=== PATIENT | female | born 1985 | race Caucasian/White ===

== ENCOUNTER 2016-12-09 14:03 | Observation (INO) | payer OTHER ==
[~2016-12-09] VITALS: Ht 165.1 cm; Wt 63.6 kg
[2016-12-09] VITALS (9 sets, daily range): BP systolic 96–120; BP diastolic 58–78; PULSE 57–74; RESP 10–20; O2SAT 98–100
[~2016-12-09 14:03] MED LIST: IBUPROFEN PO; ONDA4TAB6 PO; PREN-121 PO; [UNRECOGNIZED DRUG - CODE] PO
--- NOTE | 2016-12-09 15:53 | ED.REPORT ---
HPI- Female Date of Service Dec 09, 2016 ED Provider: Fabiola Garcia History of Present Illness: bartholins cyst, no bobbin washer. primary care is ketan fuller. normally healthy. present since last Friday. no hx of prior. Seen on and opened it. getting worse. No discharge out. Nursing Notes Stated Complaint: BARTHOLIN GLAND CYST/REFERRED BY JOSEFINA CASE Chief Complaint: General Complaint Nursing Notes Reviewed: Yes Allergies: Coded Allergies: No Known Allergies (Verified Allergy, Unknown, 08/17/15) No Active Prescriptions or Reported Meds General Time Seen by MD: 15:52 Chief Complaint Other (bartholins cyst) Hx Obtained From: Patient Sudden in Onset?: No Past Medical History Past Medical History Fibrocystic breasts diagnosed at age 20, per mammogram. History of HPV in 2005. Past Surgical History D&C Family History noncontributory Smoking History Never Smoker Social History Drug Use: Denies drug use Other Social History: Good social support, , Local resident Ambulatory Status Independent Review of Systems Basic Review of Systems Eyes: Vision NL, No discharge Hematologic: No bleeding, No bruising Psychiatric: Normal thought content Physical Exam Initial Vital Signs Vital Signs (First) Date Time Temp Pulse Resp B/P Pulse Ox O2 Delivery O2 Flow Rate FiO2 12/09/16 14:07 37.0 74 20 120/77 99 Room Air Initial VS: Reviewed, Vital signs normal General/Constitutional: Well-developed, Well-nourished Head / Eyes: Atraumatic, Normocephalic, PERRL ENT: Mucous membranes moist, Conjunctiva normal, No scleral icterus Neck: Supple, Non-tender, Full range of motion Respiratory: Breath sounds normal, Clear to auscultation, No respiratory distress Cardiovascular: Regular rate & rhythm, Heart sounds normal, Intact distal pulses Abdomen / GI: Soft, Non-tender, No guarding, No rebound, No distention Back: No CVA tenderness Lymphatic: No lymphadenopathy Extremities: Vascular intact, Neuro intact, No swelling, No tenderness Skin: Warm, Dry, No cyanosis Neurologic: Alert, Oriented, Nonfocal Psychiatric: Mood/affect normal, Behavior normal, Normal thought content suture with packing on the left labia. Protruding abscess site on left rectal area with swelling extending into labia General/Constitutional: Awake, Alert Distress / Hydration: Positive: Distress mild Respiratory / Chest: Atraumatic, Breath sounds NL, Breath sounds = bilat, No respiratory distress Cardiovascular: Heart rate NL, Regular rhythm, Heart sounds NL Abdomen: Atraumatic, Soft, Non-tender Interpretation & Diagnostics Lab Results Interpretation Result Diagram: 12/09/16 1627 12/09/16 1627 Test 12/09/16 16:27 12/09/16 16:55 12/09/16 17:01 White Blood Count 12.6th/mm3 (3.8-10.1) Red Blood Count 4.24mil/mm3 (3.90-5.20) Hemoglobin 12.7g/dL (12.0-15.6) Hematocrit 38.7% (35.0-46.0) Mean Corpuscular Volume 91.3fL (81-100) Mean Corpuscular Hemoglobin 30.0pg (27.0-35.0) Mean Corpuscular Hemoglobin Concent 32.8% (32.0-37.0) Red Cell Distribution Width 12.3% (12.3-15.4) Platelet Count 182bil/L (150-400) Neutrophils (%) (Auto) 78.0% (40-74) Lymphocytes (%) (Auto) 12.5% (14-46) Monocytes (%) (Auto) 7.2% (4-12) Eosinophils (%) (Auto) 1.9% (0-5) Basophils (%) (Auto) 0.2% (0-3) Sodium Level 138mEq/L (134-144) Potassium Level 3.9mEq/L (3.5-5.2) Chloride Level 101mEq/L (97-108) Carbon Dioxide Level 24mmol/L (18-29) Blood Urea Nitrogen 10mg/dL (6-20) Creatinine 0.75mg/dL (0.57-1.00) Estimat Glomerular Filtration Rate 130mL/min (>59) Glucose Level 98mg/dL (60-99) Lactic Acid Level 0.7mmol/L (0.4-2.0) Calcium Level 9.0mg/dL (8.5-10.1) Total Bilirubin 0.3mg/dL (0.0-1.2) Aspartate Amino Transf (AST/SGOT) 13U/L (0-50) Alanine Aminotransferase (ALT/SGPT) 11U/L (0-32) Alkaline Phosphatase 51U/L (25-150) Total Protein 6.9g/dL (6.4-8.4) Albumin 3.8g/dL (3.4-5.0) Hold Urine Received (Received) Urine Color Yellow (YELLOW) Urine Appearance Clear (CLEAR,HAZY) Urine pH 5.5 (5.0-8.0) Urine Specific [place] 1.010 (1.003-1.035) Urine Protein Negativemg/dL (NEG,TRACE) Urine Glucose (UA) Negativemg/dL (NEGATIVE) Urine Ketones 15mg/dL (NEGATIVE) Urine Occult Blood Negative (NEGATIVE) Urine Nitrite Negative (NEGATIVE) Urine Bilirubin Negative (NEGATIVE) Urine Urobilinogen Normalmg/dL (NORMAL) Urine Leukocyte Esterase Negative (NEGATIVE) Urine RBC 0-2/hpf (0-2) Urine WBC 0-5/hpf (0-5) Urine Epithelial Cells Few/hpf (NONE-MOD) Urine Crystals None seen (NONE SEEN) Urine Bacteria Few/hpf (NONE-FEW) Urine Hyaline Casts None/lpf (NONE) Urine Granular Casts None seen (NONE SEEN) Urine Waxy Casts None seen (NONE SEEN) Urine Red Blood Cell Casts None seen (NONE SEEN) Urine White Blood Cell Casts None seen (NONE SEEN) Urine Mucus None seen (None Seen) Urine Trichomonas None seen (NONE SEEN) Urine Yeast None (NONE SEEN) Urinalysis Comment None Urine Culture Reflexed Not indicated CT Abd / Pelvis Interpretation PROCEDURE: CT ABDOMEN AND PELVIS WITH CONTRAST ([id number]) INDICATIONS: ? rectal vs perirectal abscess with extension into TECHNIQUE: After the administration of intravenous contrast, 5 mm thick sections acquired from the diaphragm to the symphysis. 5 mm coronal and sagittal reformats were acquired. For radiation dose reduction, the following was used: automated exposure control, adjustment of mA and/or kV according to patient size. COMPARISON: None. FINDINGS: Image quality: Excellent. ABDOMEN: Lung bases: Lung bases are clear. Heart size is normal. Solid organs: Liver is enlarged with steatosis. The spleen is normal in size and enhancement. Gallbladder is unremarkable. Biliary system is non dilated. Pancreas enhances normally. No adrenal nodules. Kidneys demonstrate normal size and enhancement, without hydronephrosis. Peritoneum and bowel: Bowel loops demonstrate normal wall thickness and caliber. No free fluid or air. Nodes and vessels: No retroperitoneal or mesenteric adenopathy by size criteria. Aorta and inferior vena cava are normal in size. Miscellaneous: No ventral hernias. PELVIS: Genitourinary: Bladder wall thickness is normal. Intrauterine device is present. Right adnexal cyst is present measuring 25 mm. Miscellaneous: No inguinal hernias or adenopathy. Left perirectal enhancing fluid collection in the para midline position measuring 34 mm AP by 29 mm transverse. There is mild surrounding subcutaneous fat stranding. Bones: No suspicious bony lesions. No vertebral body compression fractures. IMPRESSION: 1. Left perirectal enhancing fluid collection described above measuring 34 mm AP by 29 mm transverse most consistent with abscess. 2. Right adnexal cyst. Dictated by: Irlanda Mazariegos M.D. on 12/09/2016 at 17:17 Approved by: Irlanda Mazariegos M.D. on 12/09/2016 at 17:54 Re-Eval/Medical Decision Med Decision/Clinical Course 31 year old presents for evualation of perianal pain of 5 days duration. Exam indicates left sided swellinginto the labia with suture and packing. Protruding abscess on rectal area. Patient with exquiste tenderness in rectal area Discharge & Departure Impression: Primary Impression: Perirectal abscess Disposition: ADMITTED TO HOSPITAL Referrals: Josefina uFller (PCP) EDSupervising Provider for APC: Myke Peng DO copies to: Josefnia Fuller Sue ARNP Dec 09, 2016 15:53
[2016-12-09] MEDS ORDERED: HYDROmorphone 0.5 mg/0.5 mL iSecure Syringe IVPUSH ONE (16:00)
[2016-12-09] MEDS ORDERED: Ondansetron 2 mg/mL 2 mL Inj IVPUSH ONE (16:00)
[2016-12-09] MEDS ORDERED: Vancomycin Inj 1,000 MG in IV Premix 1 EACH IV ONE (16:00)
[2016-12-09] MEDS ORDERED: 0.9% Sodium Chloride 1,000 ML IV ONE (16:00)
[2016-12-09 16:33] LABS: BASOPHILS % (AUTO) 0.2 % (0-3); EOSINOPHILS % (AUTO) 1.9 % (0-5); MONOCYTES % (AUTO) 7.2 % (4-12); Mean Corpuscular Volume 91.3 fL (81-100); Platelet Count 182 bil/L (150-400)
[2016-12-09 17:33] LABS: APPEARANCE,URINE CLEAR (CLEAR,HAZY); COLOR,URINE YELLOW (YELLOW); OCCULT BLOOD,URINE NEGATIVE (NEGATIVE); PH,URINE 5.5 (5.0-8.0); UROBILINOGEN,URINE NORMAL (NORMAL)
--- NOTE | 2016-12-09 17:56 | DRSVH ---
PROCEDURE: CT ABDOMEN AND PELVIS WITH CONTRAST ([id number]) INDICATIONS: ? rectal vs perirectal abscess with extension into TECHNIQUE: After the administration of intravenous contrast, 5 mm thick sections acquired from the diaphragm to the symphysis. 5 mm coronal and sagittal reformats were acquired. For radiation dose reduction, the following was used: automated exposure control, adjustment of mA and/or kV according to patient siz e. COMPARISON: None. FINDINGS: Image quality: Excellent. ABDOMEN: Lung bases: Lung bases are clear. Heart size is normal. Solid organs: Liver is enlarged with steatosis. The spleen is normal in size and enhancement. Gallb ladder is unremarkable. Biliary system is non dilated. Pancreas enhances normally. No adrenal nodu les. Kidneys demonstrate normal size and enhancement, without hydronephrosis. Peritoneum and bowel: Bowel loops demonstrate normal wall thickness and caliber. No free fluid or a ir. Nodes and vessels: No retroperitoneal or mesenteric adenopathy by size criteria. Aorta and inferior vena cava are normal in size. Miscellaneous: No ventral hernias. PELVIS: Genitourinary: Bladder wall thickness is normal. Intrauterine device is present. Right adnexal cyst is present measuring 25 mm. Miscellaneous: No inguinal hernias or adenopathy. Left perirectal enhancing fluid collection in the para midline position measuring 34 mm AP by 29 mm transverse. There is mild surrounding subcutaneous fat stranding. Bones: No suspicious bony lesions. No vertebral body compression fractures. IMPRESSION: 1. Left perirectal enhancing fluid collection described above measuring 34 mm AP by 29 mm transverse most consistent with abscess. 2. Right adnexal cyst. Dictated by: Irlanda Mazariegos M.D. on 12/09/2016 at 17:17 Approved by: Irlanda Mazariegos M.D. on 12/09/2016 at 17:54
[2016-12-09] MEDS ORDERED: Lactated Ringer's 500 ML IV PRN (19:52)
[2016-12-09] MEDS ORDERED: Lactated Ringer's 1,000 ML IV SCH (19:52)
[2016-12-09] MEDS ORDERED: Lactated Ringer's 1,000 ML IV ONE ×3 (19:52)
--- NOTE | 2016-12-09 19:52 | PCM.HPANE ---
Patient Data Date of Service: Dec 09, 2016 Surgeon Admitting Provider: Attending Provider:Rosendo Jay MD Primary Care Physician:Roz Loredo Other Provider: Reason for Visit Perirectal Abscess Ht/WT & BMI Height (Feet): 5 Height (Inches): 5 Weight (Kilograms): 63.18 Body Mass Index Allergies Coded Allergies: No Known Allergies (Verified Allergy, Unknown, 08/17/15) Past Anesthesia History Anesthesia History: Denies:: Abnormal Airway, Anesthesia Reactions, Difficult Intubation, Fam Anesthesia Reaction, Fam Malignant Hypertherm, Malignant Hyperthermia Diabetes History Hx Diabetes?: No Medications Hypertension Medication: No Home Meds Incl Beta Viki: No Discontinued Reported Medications Vit B12/Folic Ac/Iron/C/Intrin (FOLTRIN-Expunged Drug, Do Not Renew!)1 Ea Cap1 Cap PO DAILY 11/24/12 VIT #108/IRON/FA-Expunged Drug, Do N ( ONE-Expunged Drug, Do Not Renew!)1 Each Tablet1 Each PO 11/24/12 Discontinued Scripts Ondansetron (Zofran)4 Mg Tablet4 Mg PO Q4H PRN For Nausea #10 TABLET Prov:Tyler Bills MD 08/17/15 [[id number] mg] No Conflict Check Mg PO q6-8 hours PRN #60 Ref 1 Prov:Dionne Ludwig CNM 11/26/12 History History of ENT Problems?: No HEENT History: Denies:: Abnormal Airway Cataracts Difficult Intubation Dysphagia Glaucoma Hearing Problem Sinus Problem TMJ Denture Type: None Teeth Condition: Within Normal Limits Hx of Heart Problems?: No Cardiovascular History: Denies:: Congestive Heart Failure Hypertension Hx of Respiratory Problem?: Yes Respiratory History: Positive for:: Asthma Denies:: Tuberculosis Hx Neurologic Problems?: No Hx of GI Problems?: No Hx of Problems?: No Hx Musculoskeletal Problems?: No Hx Surgeries?: Yes (D/C 2008) Hx Any Other Health Problems?: No Hx Diabetes: No Hx Alcohol Use: NoHx Substance Use: No Smoking Status: Never Smoker Have You Smoked inLast 12 mo: No Stop/Bang Risk Assessment Category Category 1A: Patient has history of documented sleep apnea, and HAS NOT received any narcotic, sedative or anesthesia administration during this stay. Category 1B: Patient has history of documented sleep apnea, and HAS received any narcotic , sedative or anesthesia administration during this stay Category 2: Patient has SUSPECTED Obstructive Sleep Apnea, and HAS received any narcotic , sedative or anesthesia administration during this stay. Category 3: Patient has SUSPECTED Obstructive Sleep Apnea and HAS NOT received narcotic, sedative or anesthesia administration during this stay. Category 4: Outpatient in Procedural Areas with known sleep apnea or who screen positive for High Risk via the STOP/BANG questionnaire. Exam Exam Vital Signs Vital Signs Date Time Temp Pulse Resp B/P Pulse Ox O2 Delivery O2 Flow Rate FiO2 12/09/16 18:41 36.9 63 12 100/69 98 Room Air 12/09/16 14:07 37.0 74 20 120/77 99 Room Air General Appearance: Alert, Oriented X3, Cooperative, No Acute Distress HEENT/AIRWAY: MP 2 Lungs: Normal Air Movement Heart: Exam Unremarkable Meds/Labs/Diagnostics Admission Meds Current Medications Sodium Chloride (Normal Saline) 1,000 ml @ 0 mls/hr Q0M ONCE IV Last administered on 12/09/16 16:37; Start 12/09/16 at 16:00; Stop 12/09/16 at 16:05 ; Status DC Hydromorphone HCl (Dilaudid Inj) 0.5 mg ONCE ONCE IVPUSH Last administered on 12/09/16 16:37; Start 12/09/16 at 16:00; Stop 12/09/16 at 16:05; Status DC Ondansetron HCl 4 mg 4 mg ONCE ONCE IVPUSH Last administered on 12/09/16 16: 37; Start 12/09/16 at 16:00; Stop 12/09/16 at 16:05; Status DC Vancomycin/0.9 % Sod Chloride/ Premix (Vancomycin Inj/ IV Premix) 200 ml @ 133.333 mls/hr ONCE ONCE IV Last administered on 12/09/16 16:41; Start at 16:00; Stop 12/09/16 at 17:29; Status DC Diphenhydramine HCl (Benadryl Inj) 50 mg STK-MED ONCE .ROUTE Last administered on 12/09/16 18:14; Start 12/09/16 at 18:11; Stop 12/09/16 at 18:12; Status DC Labs Test 12/09/16 16:27 12/09/16 16:55 12/09/16 17:01 White Blood Count 12.6th/mm3 (3.8-10.1) Red Blood Count 4.24mil/mm3 (3.90-5.20) Hemoglobin 12.7g/dL (12.0-15.6) Hematocrit 38.7% (35.0-46.0) Mean Corpuscular Volume 91.3fL (81-100) Mean Corpuscular Hemoglobin 30.0pg (27.0-35.0) Mean Corpuscular Hemoglobin Concent 32.8% (32.0-37.0) Red Cell Distribution Width 12.3% (12.3-15.4) Platelet Count 182bil/L (150-400) Neutrophils (%) (Auto) 78.0% (40-74) Lymphocytes (%) (Auto) 12.5% (14-46) Monocytes (%) (Auto) 7.2% (4-12) Eosinophils (%) (Auto) 1.9% (0-5) Basophils (%) (Auto) 0.2% (0-3) Sodium Level 138mEq/L (134-144) Potassium Level 3.9mEq/L (3.5-5.2) Chloride Level 101mEq/L (97-108) Carbon Dioxide Level 24mmol/L (18-29) Blood Urea Nitrogen 10mg/dL (6-20) Creatinine 0.75mg/dL (0.57-1.00) Estimat Glomerular Filtration Rate 130mL/min (>59) Glucose Level 98mg/dL (60-99) Lactic Acid Level 0.7mmol/L (0.4-2.0) Calcium Level 9.0mg/dL (8.5-10.1) Total Bilirubin 0.3mg/dL (0.0-1.2) Aspartate Amino Transf (AST/SGOT) 13U/L (0-50) Alanine Aminotransferase (ALT/SGPT) 11U/L (0-32) Alkaline Phosphatase 51U/L (25-150) Total Protein 6.9g/dL (6.4-8.4) Albumin 3.8g/dL (3.4-5.0) Hold Urine Received (Received) Urine Color Yellow (YELLOW) Urine Appearance Clear (CLEAR,HAZY) Urine pH 5.5 (5.0-8.0) Urine Specific [place] 1.010 (1.003-1.035) Urine Protein Negativemg/dL (NEG,TRACE) Urine Glucose (UA) Negativemg/dL (NEGATIVE) Urine Ketones 15mg/dL (NEGATIVE) Urine Occult Blood Negative (NEGATIVE) Urine Nitrite Negative (NEGATIVE) Urine Bilirubin Negative (NEGATIVE) Urine Urobilinogen Normalmg/dL (NORMAL) Urine Leukocyte Esterase Negative (NEGATIVE) Urine RBC 0-2/hpf (0-2) Urine WBC 0-5/hpf (0-5) Urine Epithelial Cells Few/hpf (NONE-MOD) Urine Crystals None seen (NONE SEEN) Urine Bacteria Few/hpf (NONE-FEW) Urine Hyaline Casts None/lpf (NONE) Urine Granular Casts None seen (NONE SEEN) Urine Waxy Casts None seen (NONE SEEN) Urine Red Blood Cell Casts None seen (NONE SEEN) Urine White Blood Cell Casts None seen (NONE SEEN) Urine Mucus None seen (None Seen) Urine Trichomonas None seen (NONE SEEN) Urine Yeast None (NONE SEEN) Urinalysis Comment None Urine Culture Reflexed Not indicated Plan Impression Patient chart reviewed, patient interviewed and anesthestic plan with risks, benefits, and alternatives discussed, and informed consent obtained. NPO per Anesth. Guidelines: Yes ASA Physical Status: ASA2 Mod Systemic Disease Anesthetic Plan: GA Bene/Risks/Altern/Consents: Yes HP Complete Prior to Induction: Yes Tyrone Rizvi MD Dec 09, 2016 19:31
[2016-12-09] MEDS ORDERED: EPHEDrine Sulfate 50 mg/mL Inj IVPUSH PRN (19:55)
[2016-12-09] MEDS ORDERED: fentaNYL-PF 50 mCg/mL 2 mL Inj IVPUSH PRN (19:55)
[2016-12-09] MEDS ORDERED: Albuterol-Ipratropium 3 mL Inhalation Solution NEB PRN (19:55)
[2016-12-09] MEDS ORDERED: MetoCLOpramide 5 mg/mL 2 mL Inj IVPUSH PRN (19:55)
[2016-12-09] MEDS ORDERED: Atropine 0.4 mg/mL Inj IVPUSH PRN (19:55)
[2016-12-09] MEDS ORDERED: Dexamethasone 4 mg/mL Inj IVPUSH PRN (19:55)
[2016-12-09] MEDS ORDERED: HYDROmorphone 1 mg/mL Inj IVPUSH PRN (19:55)
[2016-12-09] MEDS ORDERED: Labetalol 5 mg/mL 4 mL Inj IV PRN (19:55)
[2016-12-09] MEDS ORDERED: Ondansetron 2 mg/mL 2 mL Inj IVPUSH PRN ×2 (19:55→20:55)
[2016-12-09] MEDS ORDERED: Phenylephrine 10,000 mCg/mL Inj IVPUSH PRN (19:55)
--- NOTE | 2016-12-09 20:35 | PCM.ANEP1 ---
Post Anesthesia PACU Phase 1 Assessment Date of Service: Dec 09, 2016 Vital Signs Vital Signs Date Time Temp Pulse Resp B/P Pulse Ox O2 Delivery O2 Flow Rate FiO2 12/09/16 19:44 70 18 110/78 99 Room Air 12/09/16 18:41 36.9 63 12 100/69 98 Room Air 12/09/16 14:07 37.0 74 20 120/77 99 Room Air Anesthetic Administered: GA Level of Alertness: Drowsy, not talking Pain: No Pain Scale Score: 0 Nausea or Vomiting: No CV Function & Hydration Stable: Yes Airway Device: Oxygen Delivery: Nasal Cannula Lungs: Normal Air Movement PACU Phase 2 Assessment Complications: No Follow up Care: N/A Patient Instructions Provided: N/A Tyrone Rizvi MD Dec 09, 2016 20:35
[2016-12-09] MEDS ORDERED: Bupivacaine-MPF 0.5% W/EPI 30 mL Inj INFILTRATE ONE (20:36)
[2016-12-09] MEDS ORDERED: Polyethylene Glycol (PEG) 17 Gm Powder PO ONE (20:55)
[2016-12-09] MEDS ORDERED: diphenhydrAMINE 25 mg Capsule PO PRN (20:55)
[2016-12-09] MEDS ORDERED: Acetaminophen IV 1,000 MG in IV Premix 1 EACH IV PRN (20:55)
--- NOTE | 2016-12-09 21:18 | HP ---
[address] [address] HISTORY AND PHYSICAL PATIENT: JORDAN CHAPMAN : 1985 MR#: [id number] ADMIT: 12/09/2016 JOB ID: [id number] DATE: 12/09/2016 CHIEF COMPLAINT: A 31-year-old female with a left buttock abscess. HISTORY OF PRESENT ILLNESS: The patient was seen by her primary care provider, SHANNAN Simental last week with concerns of a possible Bartholin's gland cyst. This was marsupialized without findings of much pus. Patient reports that her pain started midway between her anus and her labia and has localized to the crease between her perineum just behind her labial opening and the crease with her left leg. She had not improved on oral antibiotics and was sent to the emergency department where CT scan has demonstrated what appears to be an abscess. PAST MEDICAL HISTORY: D and C. MEDICATIONS: None. ALLERGIES: None. SOCIAL HISTORY: , negative tobacco. Negative daily alcohol. FAMILY HISTORY: Noncontributory. REVIEW OF SYSTEMS: Negative. PHYSICAL EXAMINATION: A slender woman in no acute distress. Heart and lungs are unremarkable. Abdomen is benign. She has a drain at the marsupialization of a Bartholin's cyst. She is mildly tender posterior to this. LABORATORY DATA: Her white count is 12.6, hematocrit is 38.7. Chemistries are normal. Albumin is 3.8. IMAGING: She has had an abdominal CT, and I have reviewed the report and looked at the images. I agree that she has an abscess as described in the impression, but it does not seem to be perirectal but more perineal. IMPRESSION AND PLAN: A healthy, 31-year-old female with a probable abscess in the perineum. I do not think this is a perirectal abscess as there is no history of pain with defecation and she is not at all tender around the anus. This may have started somehow related to the Bartholin's gland or perhaps some other vaginal injury, but it may also simply be some sort of subcutaneous infection. I have recommended that we aspirate it and consider draining it. I have offered to do that in the emergency department under local or in the operating room and she would prefer to have it done with an anesthetic, and I think this is very reasonable as I expect this will be fairly tender and uncomfortable for her. Given the hour, I have recommended that we plan to admit her for observation overnight. She agrees to proceed with incision and drainage of this abscess.
[2016-12-09] MEDS: Amoxicillin-Clav 875-125 mg Tablet PO SCH (23:34)
[2016-12-09] MEDS ORDERED: 0.9% Sodium Chloride 100 ML ONE (23:39)
--- NOTE | 2016-12-10 00:23 | NUR ---
Admit to Room 1019 Patient arrived to room 1019 at 2123 via [facility] accompanied by Jermaine BAJWA and LUPE roth. Patients was waiting in room for patient. VSS. No complaints of n/v. Patient stated pain 8/10 on pain scale. Pain medication administered. Patient oriented to room. Call light within reach. Care continues.
[2016-12-10 03:30] VITALS: BP 99/66; PULSE 68; RESP 18; O2SAT 99
[2016-12-10 06:40] VITALS: BP 95/58; PULSE 57; RESP 16; O2SAT 100
--- NOTE | 2016-12-10 07:16 | PCM.DISURG ---
Surgical Discharge Instruction Date of Service Dec 10, 2016 Dates of Hospitalization Date of Hospital Admission Dec 09, 2016 at 21:42 Providers Admitting Physician: Rosendo Jay MD Primary Care Physician: Roz Loredo Attending Physician: Rosendo Jay MD Discharge Diagnosis Discharge Diagnosis perineal abscess Diet Discharge Diet: No restrictions Activity Discharge Activity-General: No restrictions Dressing and Incisional Care Hygiene: May shower, Other (sitz baths daily) Additional Instructions Discharge Instructions This infection may have started in a hair follicle or may have been what is called a Bartholin's abscess. if it was the latter, there is a small chance that it may recur and require surgery with a car dispatcher Follow Up Plan Follow Up Plan follow up with your PCP. If this infection recurs, she should refer you to a car dispatcher Rosendo Jay MD Dec 10, 2016 07:16
[2016-12-10] MEDS ORDERED: AGM875T PO (07:19)
[2016-12-10] MEDS ORDERED: OXYC5TAB72 PO (07:19)
--- NOTE | 2016-12-10 09:43 | PROG NOTE ---
[address] [address] PROGRESS NOTE PATIENT: JORDAN CHAPMAN : 1985 MR#: [id number] ADMIT: 12/09/2016 JOB ID: [id number] DATE: 12/10/2016 SUBJECTIVE: Stable postop day one. We will remove her packing in the shower, discharge her home with four days of antibiotics. PROCEDURE: Incision and drainage of perineal abscess. HOSPITAL COURSE: This is a healthy 31-year-old woman who presents with a left perineal abscess several days after a marsupialization of Bartholin gland cyst. This was drained in the operating room and she will go home today with four days of p.o. antibiotics and followup with her primary care provider.
[2016-12-10] MEDS: Amoxicillin-Clav 875-125 mg Tablet PO SCH (09:51)
--- NOTE | 2016-12-10 09:54 | OP ---
[address] [address] OPERATIVE REPORT PATIENT: JORDAN CHAPMAN : 1985 MR#: [id number] ADMIT: 12/09/2016 JOB ID: [id number] DATE OF SURGERY: 12/09/2016 PREOPERATIVE DIAGNOSIS(ES): Perineal abscess. POSTOPERATIVE DIAGNOSIS(ES): Perineal abscess, possible Bartholin abscess. PROCEDURE: Incision and drainage of abscess. SURGEON: Rosendo Jay MD. INDICATIONS: A 31-year-old female who presented last week to her primary care provider with what was thought to be a Bartholin cyst. After marsupialization, this worsened over the weekend, and she was seen in our emergency department with a feeling that she may have a perirectal abscess. On examination, she has a perineal abscess rather than a perirectal abscess, and she is brought to the room for incision and drainage. FINDINGS: See below. DESCRIPTION OF PROCEDURE: The patient was brought to the operating room. SCOAP protocol was followed. She received a general anesthetic with an LMA. She was placed up in stirrups. Surgical time-out was performed. We elected to hold off on giving her any more antibiotics until after aspirating the cavity. I began by aspirating the area of maximal thickness consistent with the CT findings. We obtained 10 cc of pus. I made an incision in what I felt were the upper lines of relaxed skin tension and entered the abscess cavity bluntly with a Trang clamp. We got more pus out. We washed it out. I placed my finger in the cavity, and it was clear that this went up right by the vaginal wall. I felt that this abscess was consistent with a Bartholin abscess versus some sort of ingrown hair follicle and a subcutaneous abscess. We washed the wound out. We obtained hemostasis and packed it with iodoform gauze. The patient tolerated the procedure well.
--- NOTE | 2016-12-10 09:54 | DIS ---
[address] [address] DISCHARGE SUMMARY PATIENT: JORDAN CHAPMAN : 1985 MR#: [id number] ADMIT: 12/09/2016 JOB ID: [id number] DIS: 12/10/2016 DISCHARGE DIAGNOSIS: Left perivaginal abscess consistent with a subcutaneous abscess versus Bartholin abscess. OPERATION/PROCEDURE: Incision and drainage of abscess. HOSPITAL COURSE: A 31-year-old female presented with an abscess. She was taken the OR for a successful incision and drainage. She will be discharged today after removing her packing.
--- NOTE | 2016-12-10 10:37 | NUR ---
Discharged Patient discharged home. Packing removed, area CD. IV DC'd and intact. Discharge instructions given with no questions. RX sent with to have filled prior to being discharged. Patient encouraged to increase water intake and take stool softeners while taking Oxycodone. gathered all patient belongings. ANIMATION PRODUCER escorted patient out via W/C.
[2016-12-10] MEDS ORDERED: fentaNYL-PF 50 mCg/mL 2 mL Inj ONE (10:44)
[2016-12-10] MEDS ORDERED: Dexamethasone 4 mg/mL Inj ONE (10:44)
[2016-12-10] MEDS ORDERED: Propofol 10,000 mCg/mL 20 mL Inj ONE (10:44)
[2016-12-10] MEDS ORDERED: Ondansetron 2 mg/mL 2 mL Inj ONE (10:44)
== END 2016-12-10 10:45 | disposition home or self-care (01) ==
LOC: SED 14:03 → SAS 19:27 → OSC 19:40
PROVIDERS: ADMIT Surgery; ATTEND Surgery
DX: K61.1 Rectal abscess (principal); J45.909 Unspecified asthma, uncomplicated
CPT/HCPCS: 36415; 46040; 74177; 80053; 81000; 81025; 83605; 85025; 87070; 87075; 87185; 87205; 96365; 96375; 99285; G0378; J0131; J1100; J1170; J1200; J2405; J3010; J3370; J7030; J7120; Q9967